=== PATIENT | female | born 1975 | race African-American/Black ===

== ENCOUNTER 2019-05-16 10:39 | Day surgery (SDC) | payer OTHER ==
[2019-05-16] MEDS ORDERED: BUPIVACAINE HCL/PF 0.5% (5MG/ML) 10 ML VIAL ONE (12:38)
[2019-05-16] MEDS ORDERED: LIDOCAINE HCL 1%, 10 MG/ML (20ML VIAL) ONE (12:38)
[2019-05-16] MEDS ORDERED: MIDAZOLAM HCL 2 MG/2 ML SINGLE DOSE VIAL ONE ×2 (13:16→13:29)
[2019-05-16] MEDS ORDERED: PROPOFOL 20 ML ONE ×2 (13:16)
[2019-05-16] MEDS ORDERED: BUPIVACAINE HCL/PF 0.5% (5MG/ML) 10 ML VIAL NR ONE (13:50)
[2019-05-16] MEDS ORDERED: LIDOCAINE HCL 1%, 10 MG/ML (20ML VIAL) NR ONE (13:50)
[2019-05-16] MEDS ORDERED: EPHEDRINE SULFATE/0.9% NACL/PF 50 MG/10 ML SYRINGE NR ONE (14:19)
[2019-05-16] MEDS ORDERED: ceFAZolin SODIUM 1 GM VIAL ONE (14:20)
[2019-05-16] MEDS ORDERED: VANCOMYCIN 1,000 MG VIAL (RESTRICTED TO ID ONLY) ONE (14:20)
[2019-05-16] MEDS ORDERED: ONDANSETRON 4 MG/2 ML VIAL IVPUSH PRN (15:04)
[2019-05-16] MEDS ORDERED: oxyCODONE HCL 5 MG TABLET PO PRN ×2 (15:04)
[2019-05-16 15:13] VITALS: TEMP 98.3
[2019-05-16] MEDS ORDERED: LACTATED RINGERS SOLUTION 1,000 ML IV SCH (15:15)
[2019-05-16 17:31] VITALS: BP 143/83; PULSE 77
--- NOTE | 2019-05-17 11:12 | OP ---
DATE OF OPERATION: 05/16/2019 PREOPERATIVE DIAGNOSES: Prolapsing 3rd-degree hemorrhoids and anal mucosal prolapse. POSTOPERATIVE DIAGNOSES: Prolapsing 3rd-degree hemorrhoids and anal mucosal prolapse. OPERATIVE PROCEDURE: Hemorrhoidectomy and annuloplasty. SURGEON: Yuliet Faye MD ANESTHESIA: Caudal block and local. DESCRIPTION OF PROCEDURE: Patient was brought to the operating room with the complaint of prolapsing 3rd-degree hemorrhoids and anal mucosa which is like a large lucy. Caudal block was given and the patient was placed in the prone position and the gluteal muscles were with tape and local with Marcaine also was injected subcutaneously and intermuscular plane. Then the large prolapsing hemorrhoids and the skin of the anal mucosa were grasped with the Allis clamp. The skin of the normal anus was also grasped and the submucosal dissection was done. Care was taken to avoid injury to the sphincter muscle which was carefully identified and preserved. A large segment of this hemorrhoidal tissue was removed and it was from 6 o'clock to 3 o'clock position and submucosal and taken down to the dentate line. It was excised and the mucosa was then approximated and also the skin and a small piece of the skin was left open for drainage. No complications were encountered and patient went to the recovery room. Jeffy [id number]
--- NOTE | 2019-05-18 16:07 | PATH ---
Surgical Pathology Report Patient Name: SUKHJINDER HAYDEN Med. Rec. #: [id number] /Age/Gender: 1975 (Age: 43) / F Account: [id number] Location: [facility] AMBULATORY Taken: 05/16/2019 Received: 05/16/2019 Reported: 05/18/2019 Physicians: Yuliet Faye M.D. Specimen(s) Received HEMORRHOIDS Clinical History Prolapsing hemorrhoids Final Diagnosis HEMORRHOIDS, HEMORRHOIDECTOMY: POLYPOID SQUAMOCOLUMAR MUCOSA WITH DILATED THICK WALLED CONGESTED SUBMUCOSAL VESSELS CONSISTENT WITH HEMORRHOIDS. Electronically Signed Narcisa Mcnally M.D. Gross Description Received in formalin labeled "hemorrhoids," are 2 ayala-brown, unoriented portions of skin and soft tissue measuring 1.7 x 1.0 x 0.8 cm and 3.0 x 3.0 x 1.7 cm. Sectioning reveals hemorrhagic soft tissue. Gameplay Programmer sections are submitted in 2 cassettes. /05/17/2019 saudi/05/17/2019
== END 2019-05-16 17:20 | disposition home or self-care (01) ==
LOC: FASU 10:39
PROVIDERS: ATTEND Surgery Vascular Surgery
PROC: 06BY0ZC Excision of Hemorrhoidal Plexus, Open Approach (ICD-10-PCS; principal; 2019-05-16 13:43)
DX: K64.2 Third degree hemorrhoids (principal); K62.2 Anal prolapse; K64.9 Unspecified hemorrhoids
CPT/HCPCS: 84703; 88304-TC; 94760